=== PATIENT | male | born 1945 | race Two or more races ===

== ENCOUNTER 2016-11-14 08:35 | Day surgery (SDC) | payer MEDICARE, MEDICAID ==
[~2016-11-14] VITALS: Ht 177.8 cm; Wt 74.8 kg
[2016-11-14] VITALS (9 sets, daily range): BP systolic 94–149; BP diastolic 56–66
[~2016-11-14 08:35] MED LIST: BENAZEPRIL HCL20 MG ORAL; DEXILANT60 MG ORAL; FLOMAX0.4 MG ORAL; GLUCOTROL10 MG ORAL; METFORMIN HCL850 M1 ORAL; NORVASC5 MG ORAL; SIMVASTATIN40 MG ORAL; TOPROL XL50 MG ORAL
[2016-11-14] MEDS ORDERED: Lidocaine 1% MPF 10mg/ml 5ml ONE (09:45)
[2016-11-14] MEDS ORDERED: Propofol 10mg/ml 20ml IV ONE (09:45)
--- NOTE | 2016-11-14 10:09 | Short Stay Surgery H&P ---
History of Present Illness History of Present Illness Chief Complaint gastric submucosal note HPI Devin Epstein is a 71 year old male who was admitted on for Submucosal Lession Patient History Allergies: Coded Allergies: No Known Allergies (Unverified , 09/16/15) PAST MEDICAL HISTORY: (1) DM (diabetes mellitus) (2) HTN (hypertension) (3) Hypercholesteremia Past Surgeries: Social History: Medication History Scheduled Amlodipine Besylate (Norvasc), 5 MG ORAL BID, (Reported) Benazepril Hcl* (Benazepril Hcl*), 20 MG ORAL BID, (Reported) Dexlansoprazole (Dexilant), 60 MG ORAL DAILY, (Reported) Glipizide* (Glucotrol*), 10 MG ORAL BID, (Reported) Metformin Hcl* (Metformin Hcl*), 850 MG ORAL TID, (Reported) Metoprolol Succinate* (Toprol Xl*), 50 MG ORAL DAILY, (Reported) Simvastatin (Zocor), 40 MG ORAL BEDTIME, (Reported) Tamsulosin HCl (Flomax), 0.4 MG ORAL HS, (Reported) Review of Systems Cardiovascular: Reports: no symptoms Respiratory: Reports: no symptoms Skeletal: Reports: no symptoms Gastrointestinal: Reports: no symptoms Genitourinary: Reports: no symptoms Neurologic: Reports: no symptoms Endocrine: Reports: no symptoms Hematologic: Reports: no symptoms Physical Exam Vital Signs Last Vital Signs Date Time Temp Pulse Resp B/P Pulse Ox O2 Delivery O2 Flow Rate FiO2 11/14/16 09:06 97.5 58 17 149/66 98 Room Air Skin: normal HENT: normal Heart: normal Lungs: normal Abdomen: normal Extremities: normal Plan Plan of Care egd/eus Final Diagnosis: Attestation Are the patient's medical conditions optimized for surgery? Attestation Response: yes RICK GRANGER Nov 14, 2016 10:09
--- NOTE | 2016-11-14 10:10 | Pre-Procedure Note/Attestation ---
Pre-Procedure Note/Attestation Complete Prior to Procedure Planned Procedure: not applicable Procedure Narrative: egd/eus Indications for Procedure Pre-Operative Diagnosis: gastric submucosal lesion Attestation I attest that I discussed the nature of the procedure; its benefits; risks and complications; and alternatives (and the risks and benefits of such alternatives ), prior to the procedure, with the patient (or the patient's legal employee representative). I attest that, if there was a reasonable possibility of needing a blood transfusion, the patient (or the patient's legal employee representative) was given the [facility] standardized written summary, pursuant to the Nirav Andrea Blood Safety Act ([place] Health and Safety Code # 1645, as amended). I attest that I re-evaluated the patient just prior to the surgery and that there has been no change in the patient's H&P, except as documented below: RICK GRANGER Nov 14, 2016 10:10
[2016-11-14] MEDS ORDERED: Heplock Flush 100 units/ml 3 ml syr ONE (10:42)
--- NOTE | 2016-11-14 10:49 | Anethesia Preoperative Eval ---
Anesthesia Pre-op PMH/ROS General Date of Evaluation: Nov 14, 2016 Time of Evaluation: 09:45 Anesthesiologist: mallory ASA Score: ASA 3 Mallampati Score Class I : Soft palate, uvula, fauces, pillars visible Class II: Soft palate, uvula, fauces visible Class III: Soft palate, base of uvula visible Class IV: Only hard plate visible Mallampati Classification: Class II Surgeon: sharif Diagnosis: submucosal gastric mass Surgical Procedure: egd/eus Anesthesia History: none Family History: no anesthesia problems Allergies: Coded Allergies: No Known Allergies (Unverified , 09/16/15) Medications: see eMAR Past Medical History Cardiovascular: Reports: HTN Endocrine: Reports: DM Anesthesia Pre-op Phys. Exam Physician Exam Last Vital Signs Date Time Temp Pulse Resp B/P Pulse Ox O2 Delivery O2 Flow Rate FiO2 11/14/16 09:06 97.5 58 17 149/66 98 Room Air Constitutional: NAD Neurologic: CN 2-12 intact Cardiovascular: RRR Respiratory: CTA Gastrointestinal: S/NT/ND Airway Exam Mallampati Score: Class II MO: full Neck: supple TMD: 2fb ROM: full Teeth: broken Anesthesia Pre-op A/P Studies Pre-op Studies: EKG - sinus bradycardia Risk Assessment & Plan Assessment: asa3 Plan: mac Status Change Before Surgery: No Pre-Antibiotics Drug: OBDULIO Nichols Nov 14, 2016 10:49
[2016-11-14] MEDS ORDERED: Hydromorphone 0.5mg/0.5ml inj IVP PRN (11:00)
[2016-11-14] MEDS ORDERED: Midazolam 2mg/2ml Inj IVP PRN (11:00)
[2016-11-14] MEDS ORDERED: Atropine Inj 1mg/10ml Syr IV PRN (11:00)
[2016-11-14] MEDS ORDERED: DiphenhydrAMINE 50mg/ml Inj IVP PRN (11:00)
--- NOTE | 2016-11-14 11:04 | Immediate Post-Op Evaluation ---
Immediate Post-Op Evalulation Immediate Post-Op Evalulation Procedure: egd/eus Date of Evaluation: Nov 14, 2016 Time of Evaluation: 11:32 IV Fluids: 0.9ns Blood Products: none Estimated Blood Loss: negligible Blood Pressure Systolic: 105 Blood Pressure Diastolic: 62 Pulse Rate: 53 Respiratory Rate: 18 O2 Sat by Pulse Oximetry: 97 Temperature (Fahrenheit): 97.1 Pain Score (1-10): 0 Nausea: No Vomiting: No Complications none Patient Status: awake, reacts, patent Hydration Status: adequate Drug: OBDULIO Nichols Nov 14, 2016 11:04
--- NOTE | 2016-11-14 11:16 | Endoscopy Procedure Note ---
Endoscopy Procedure Note Indication for Procedure: gastric sub mucosal lesion Procedures Performed: EGD, other - EUS Operative Findings/Diagnosis: same Specimen: yes Pt Tolerated Procedure Well: Yes Estimated Blood Loss: none Anesthesiologist: maria eugenia Anesthesia: MAC Implant(s) used?: No 50 yrs or older w/o bx or poly: Not Applicable 10yrs. F/U not recommended: Not Applicable RICK GRANGER Nov 14, 2016 11:16
--- NOTE | 2016-11-14 12:31 | 48 Hour Post Anesthesia Eval ---
Post Anesthesia Evaluation Procedure: egd/eus Date of Evaluation: Nov 14, 2016 Time of Evaluation: 12:30 Blood Pressure Systolic: 115 0: 62 Pulse Rate: 55 Respiratory Rate: 18 Temperature (Fahrenheit): 97.1 O2 Sat by Pulse Oximetry: 97 Airway: patent Nausea: No Vomiting: No Pain Intensity: 0 Hydration Status: adequate Cardiopulmonary Status: stable Mental Status/LOC: patient returned to baseline Post-Anesthesia Complications: none Follow-up care needed: N/A OBDULIO DOUGLASS Nov 14, 2016 12:31
--- NOTE | 2016-11-15 09:01 | Procedure Note ---
DATE OF PROCEDURE: 11/14/2016 SURGEON: Owen Holden M.D. PROCEDURE: Upper endoscopy with endoscopic ultrasound with fine needle aspiration . ANESTHESIA: Per Mojgan Olivarez M.D. INSTRUMENT: Olympus adult flexible upper endoscope and EUS scope. INDICATION: Gastric submucosal lesion . REASON FOR PROCEDURE: The procedure, risks, benefits, and possible consequences, including hemorrhage, aspiration, perforation and infection, and alternative treatments, were explained to the patient/legal guardian by Dr. Owen Holden and the patient/legal guardian understood and accepted these risks. DESCRIPTION OF PROCEDURE: After informed consent was obtained and the patient was adequately sedated, Olympus upper endoscope was advanced from the mouth into the second portion of the duodenum and retroflexion was performed in the stomach. The patient had a gastric submucosal lesion in the antrum of the stomach, posterior wall of around 7 o'clock position in the peripyloric region. At this time, the upper endoscope was used and an EUS scope was introduced. This lesion was measured about 1.8 cm arising from the muscularis propria, elevated off the gastric wall, most probably a leiomyoma, but there was some cystic area in the middle of this lesion, about 9 mm cystic area, so this lesion was not homogenous, but heterogeneous. Therefore, we decided to do a FNA. At this time, the EUS radial scope was removed and linear scope was introduced. Using a #22 new Shark needle, we did two passages of the FNA for biopsy. This was little bit challenging given this is a leiomyoma and it was running away from the needle every time we tried. So we spent a lot of time trying to get the needle into the lesion. The patient tolerated the procedure without any complication. SUMMARY OF FINDINGS: An 1.8 cm gastric submucosal lesion arising from muscularis propria layer of the gastric wall highly suspicious for leiomyoma. This lesion was not homogenous, but heterogenous with a 9 mm area in the middle, which was more hyperechoic, status post fine needle aspiration x2. RECOMMENDATION: Follow biopsy results accordingly. Owen Holden M.D. DR: MV/PM JOB#: [id number] CC:
== END 2016-11-14 12:30 | disposition home or self-care (01) ==
LOC: GAS 08:35
DX: K31.9 Disease of stomach and duodenum, unspecified (principal); E11.9 Type 2 diabetes mellitus without complications; Z79.84 Long term (current) use of oral hypoglycemic drugs; I10 Essential (primary) hypertension; E78.00 Pure hypercholesterolemia, unspecified; Z79.899 Other long term (current) drug therapy
CPT/HCPCS: 43238; 82962; 93005; J1642; J1956; J2704; 94003; 94150